=== PATIENT | male | born 1990 | race African-American/Black ===

== ENCOUNTER 2018-12-30 00:04 | Emergency (ER) | payer OTHER ==
[2018-12-30 00:41] VITALS: BP 126/85; PULSE 91; TEMP 98.2; BMI 20.3
--- NOTE | 2018-12-30 01:06 | PDOC ---
History of Present Illness - General History Source: Patient Exam Limitations: No Limitations <Sherri Madera - Last Filed: 12/30/18 01:01> <Luana Torres - Last Filed: 12/31/18 01:31> - General Chief Complaint: Cold Symptoms Stated Complaint: COLD SYMPTOMS Time Seen by Provider: 12/30/18 00:48 Past History - Suicide/Smoking/Psychosocial Hx Smoking History: Unknown if ever smoked <Sherri Madera - Last Filed: 12/30/18 01:01> *Physical Exam - Vital Signs Last Vital Signs Temp Pulse Resp BP Pulse Ox 98.2 F 91 H 20 126/85 96 12/30/18 00:38 12/30/18 00:38 12/30/18 00:38 12/30/18 00:38 12/30/18 00:38 - Physical Exam General Appearance: No: Apparent Distress HEENT: positive: Pharynx Normal, Nasal Congestion. negative: Muffled/Hoarse voice, Pharyngeal Erythema, Tonsillar Exudate, Tonsillar Erythema, Rhinorrhea, Sinus Tenderness Respiratory/Chest: positive: Lungs Clear, Normal Breath Sounds. negative: Respiratory Distress Cardiovascular: positive: Regular Rhythm, Regular Rate, S1, S2. negative: Murmur Gastrointestinal/Abdominal: positive: Normal Bowel Sounds, Soft. negative: Tender, Distended, Guarding, Rebound Integumentary: positive: Normal Color Neurologic: positive: Alert, Normal Mood/Affect <Sherri Madera - Last Filed: 12/30/18 01:01> - Vital Signs Last Vital Signs Temp Pulse Resp BP Pulse Ox 98.2 F 91 H 20 126/85 96 12/30/18 00:38 12/30/18 00:38 12/30/18 00:38 12/30/18 00:38 12/30/18 00:38 <Luana Torres - Last Filed: 12/31/18 01:31> Moderate Sedation - Procedure Monitoring Vital Signs: Procedure Monitoring Vital Signs Temperature 98.2 F 12/30/18 00:38 Pulse Rate 91 H 12/30/18 00:38 Respiratory Rate 20 12/30/18 00:38 Blood Pressure 126/85 12/30/18 00:38 O2 Sat by Pulse Oximetry (%) 96 12/30/18 00:38 <Sherri Madera - Last Filed: 12/30/18 01:01> - Procedure Monitoring Vital Signs: Procedure Monitoring Vital Signs Temperature 98.2 F 12/30/18 00:38 Pulse Rate 91 H 12/30/18 00:38 Respiratory Rate 20 12/30/18 00:38 Blood Pressure 126/85 12/30/18 00:38 O2 Sat by Pulse Oximetry (%) 96 12/30/18 00:38 <Luana Torres - Last Filed: 12/31/18 01:31> Medical Decision Making - Medical Decision Making 28 y/o M with no sig pmh presents with productive cough, congestion and PEACOCK x 1 week. Has been using Theraflu and Robitussin without much help. Took Tylenol at 5 PM today but no recent antipyretic use. States congestion and PEACOCK is bothering him the most. Denies body aches, rhinorrhea, sneezing, sore throat, ear pain, sob, cp, abd pain, n/v/d. Likely viral syndrome Supportive care encouraged stable for dc 12/30/18 01:02 <Sherri Madera - Last Filed: 12/30/18 01:01> *DC/Admit/Observation/Transfer - Discharge Dispostion Decision to Admit order: No <Sherri Madera - Last Filed: 12/30/18 01:01> - Attestations Physician Attestion: I reviewed the case with the mid-level practitioner and agree with the mid- level practitioner's assessment, diagnosis and disposition. <Luana Torres - Last Filed: 12/31/18 01:31> Diagnosis at time of Disposition: Viral URI - Discharge Dispostion Disposition: HOME Condition at time of disposition: Stable - Referrals Referrals: Candida Ospina MD [Primary Care Provider] - 3 days - Patient Instructions Printed Discharge Instructions: DI for Viral Upper Respiratory Infection -- Adult Additional Instructions: Thank you for choosing [facility]. It was a pleasure taking care of you. Use a Nedi-pot to help with nasal congestion You can also try using Sudafed 60 mg every 4-6 hours as needed for congestion. Do not take more than 8 tabs in 1 day Follow-up with your doctor in 2-3 days. Return to the Emergency Department if your symptoms worsen or persist or have other concerning symptoms. - Post Discharge Activity
== END 2018-12-30 01:31 | disposition home or self-care (01) ==
LOC: JER 00:04
DX: J06.9 Acute upper respiratory infection, unspecified (principal); B97.89 Other viral agents as the cause of diseases classified elsewhere
CPT/HCPCS: 99281-25